=== PATIENT | female | born 1965 | race Asian ===

== ENCOUNTER 2024-11-09 06:37 | Day surgery (SDC) | payer OTHER, SELFPAY | END 2024-11-09 08:56 | disposition home or self-care (01) | LOC: GI 06:37 | PROVIDERS: ATTENDING PHYSICIAN Internal Medicine | DX: Z12.11 Encounter for screening for malignant neoplasm of colon (principal); D12.2 Benign neoplasm of ascending colon | CPT/HCPCS: 45385; 88305 ==